=== PATIENT | male | born 1995 | race Caucasian/White ===

== ENCOUNTER 2016-05-03 22:07 | Emergency (ER) | payer OTHER ==
[2016-05-03] MEDS ORDERED: ONDANSETRON 4 MG ORAL DISINTEGRATING TAB (S0181) As Ordered ONE (23:37)
[2016-05-04] MEDS ORDERED: ONDANSETRON 4 MG ORAL DISINTEGRATING TAB (S0181) As Ordered ONE (00:12)
[2016-05-04] MEDS ORDERED: ACETAMINOPHEN 325 MG TAB As Ordered ONE (00:12)
--- NOTE | 2016-05-04 00:19 | EDDOCDS ---
Physician Documentation [facility] Name: Valentín Castillo Age: 21 yrs Sex: Male : 1995 Arrival Date: 05/03/2016 Time: 22:07 Bed Triage 3 Private MD: Disposition: 05/04/16 00:10 Discharged to Home/Self Care. Impression: Vomiting, Diarrhea, unspecified. - Condition is Stable. - Discharge Instructions: Food Choices to Help Relieve Diarrhea, Adult, Nausea and Vomiting. - Prescriptions for ZOFRAN ODT 4 mg - dissolve 1 tablet by ORAL route 4 times per day As needed do not chew, do not swallow whole; 10 tablet. - Medication Reconciliation, Work Release Form - 2 day, Local Pharmacy Hours form. - Follow up: Private Physician; When: Call to arrange an appointment; Reason: Recheck today's complaints, Continuance of care. - Problem is new. - Symptoms are unchanged. - Notes: reccommend no work until 05/05/16 or otherwise advised due to current illness Historical: - Allergies: CEPHALOSPORINS (Swelling); - Home Meds: 1. none - PMHx: none; - PSHx: none; - Social history: Smoking status: Patient states was never smoker of tobacco. No barriers to communication noted, The patient speaks fluent Korean. - Family history: Not pertinent. - : The pt / caregiver states he / she is not on anticoagulants. Home medication list is obtained from the patient. - Exposure Risk Screening:: None identified. Vital Signs: 05/03 22:18 BP 147 / 74; Pulse 113; Resp 20; Temp 96.5(O); Pulse Ox 97% on R/A; Weight 80.1 kg / kb5 176.59 lbs; Height 6 ft. 0 in. (182.88 cm) (R); Pain 7/10; 05/04 00:16 BP 138 / 78; Pulse 100; Resp 20; Temp 97.4(O); Pulse Ox 98% on R/A; Pain 0/10; jmb 05/03 22:18 Body Mass Index 23.95 (80.10 kg, 182.88 cm) kb5 MDM: 05/03 23:36 Ondansetron ODT Oral Disintegrating Tablet 4 mg PO once ordered. mo1 23:59 Financial registration complete. hs2 05/04 00:04 Ondansetron ODT Oral Disintegrating Tablet 4 mg PO once; please give to go home ordered.mo1 00:04 Acetaminophen Tablet 650 mg PO once ordered. mo1 Administered Medications: 05/03 23:38 Drug: Ondansetron ODT 4 mg [ondansetron 4 mg disintegrating tablet (1 tabs)] Route: PO; jmb 05/04 00:16 Drug: Ondansetron ODT 4 mg [ondansetron 4 mg disintegrating tablet (1 tabs)] Route: PO; jmb 00:16 Drug: Acetaminophen 650 mg [acetaminophen 325 mg tablet (2 tabs)] Route: PO; lester Signatures: Bettina Weiner RN RN rs3 Drew Caceres PA PA mo1 Darrick Allred RN RN jmb Dia Aquino, Reg Reg hs2 MTDD
--- NOTE | 2016-05-04 00:19 | EDDOCDS ---
Nurse's Notes [facility] Name: Valentín Castillo Age: 21 yrs Sex: Male : 1995 Arrival Date: 05/03/2016 Time: 22:07 Bed Triage 3 Private MD: Diagnosis: Vomiting;Diarrhea, unspecified Presentation: 05/03 22:29 Presenting complaint: states: abdominal pain, vomiting, diarrhea started 2 hours rs3 ago. Adult Sepsis Screening: The patient does not have new or worsening altered mentation. Patient's respiratory rate is less than 22. Systolic blood pressure is greater than 100. Patient has a qSOFA score of 0- Negative Sepsis Screen. Suicide/Homicide risk assessment- the patient denies having any suicidal and/or homicidal ideations and does not present with any other emotional, behavioral or mental health complaints. 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 Transition of care: patient was not received from another setting of care. 22:29 Acuity: GARY Level 3 rs3 22:29 Method Of Arrival: Walkin/Carried/Asstd rs3 Triage Assessment: 22:31 General: Appears in no apparent distress. Pain: Location: abdomen. Pt Declines HIV rs3 testing. Historical: - Allergies: CEPHALOSPORINS (Swelling); - Home Meds: 1. none - PMHx: none; - PSHx: none; - Social history: Smoking status: Patient states was never smoker of tobacco. No barriers to communication noted, The patient speaks fluent [place]ican. - Family history: Not pertinent. - : The pt / caregiver states he / she is not on anticoagulants. Home medication list is obtained from the patient. - Exposure Risk Screening:: None identified. Screenin/21 00:16 Screening information is obtained from the patient. Fall risk: No risks identified. jmb Assistance ADL's: requires no assistance with activities of daily living. Abuse/DV Screen: The patient / caregiver reports he/she is: not in a situation that causes fear, pain or injury. Nutritional screening: No deficits noted. Advance Directives: Currently, there is no health care proxy. There is no active DNR order. There is no living will. There is no Power of Financial Service Rep. home support is adequate. Assessment: 00:16 General: Patient instructed on discharge instructions. Patient asked if there were any jmb questions regarding discharge, patient stated no. Patient signed discharge instructions. Patient discharged in stable condition. . Vital Signs: 05/03 22:18 BP 147 / 74; Pulse 113; Resp 20; Temp 96.5(O); Pulse Ox 97% on R/A; Weight 80.1 kg; kb5 Height 6 ft. 0 in. (182.88 cm) (R); Pain 7/10; 05/04 00:16 BP 138 / 78; Pulse 100; Resp 20; Temp 97.4(O); Pulse Ox 98% on R/A; Pain 0/10; jmb 05/03 22:18 Body Mass Index 23.95 (80.10 kg, 182.88 cm) kb5 Vitals: 05/03 22:18 Log In Time: May 03, 2016 at 22:00. kb5 ED Course: 22:10 Patient visited by Severo Nolasco PCA. kb5 22:10 Patient moved to Waiting kb5 22:30 Triage Initiated rs3 22:32 Patient moved to Pre RCE rs3 23:30 Patient moved to Triage 3 jmb 23:31 Drew Caceres PA is PHCP. mo1 23:31 Gideon Blackwood DO is Attending Physician. mo1 23:36 Patient visited by Drew Caceres PA. mo1 05/04 00:16 The patient / caregiver is instructed regarding the plan of care and ED course. jmb 00:16 No IV's were initiated during this patient's visit. No procedures done that require jmb assistance. Administered Medications: 05/03 23:38 Drug: Ondansetron ODT 4 mg [ondansetron 4 mg disintegrating tablet (1 tabs)] Route: PO; jmb 05/04 00:16 Drug: Ondansetron ODT 4 mg [ondansetron 4 mg disintegrating tablet (1 tabs)] Route: PO; jmb 00:16 Drug: Acetaminophen 650 mg [acetaminophen 325 mg tablet (2 tabs)] Route: PO; b Order Results: There are currently no results for this order. Outcome: 00:10 Discharge ordered by Provider. mo1 00:16 Discharge Assessment: Patient awake, alert and oriented x 3. No cognitive and/or jmb functional deficits noted. Patient verbalized understanding of disposition instructions. Patient awake and alert. obeys commands, Oriented to person, place and time. Patient verbalized understanding of disposition instructions. Patient has no functional deficits. patient administered narcotics - no. The following High Risk Discharge criteria are identified: None. Discharged to home ambulatory, with family. Condition: stable Condition: improved. Discharge instructions given to patient, Instructed on discharge instructions, follow up and referral plans. medication usage, Demonstrated understanding of instructions, medications, Pt was receptive of discharge instructions/ teaching. Prescriptions given X 1. No special radiology studies were completed. Property sent home with patient. 00:19 Patient left the ED. harryb Signatures: Severo Nolasco, REHABILITATION TEAM LEAD REHABILITATION TEAM LEAD kb5 Bettina Weiner,RN RN rs3 Drew Caceres PA PA mo1 Darrick Allred,RN RN lester Corrections: (The following items were deleted from the chart) 05/03 22:40 22:18 BP 147 / 74; Pulse 113bpm; Resp 97bpm; Pulse Ox 96% RA; Temp 96.5F Oral; 80.1 kg; kb5 Height 6 ft. 0 in. Reported; BMI: 23.9; Pain 7/10; kb5 MTDD
--- NOTE | 2016-05-06 01:19 | EDDOCDS ---
Nurse's Notes [facility] Name: Valentín Castillo Age: 21 yrs Sex: Male : 1995 Arrival Date: 05/03/2016 Time: 22:07 Bed Triage 3 Private MD: Diagnosis: Vomiting;Diarrhea, unspecified Presentation: 05/03 22:29 Presenting complaint: states: abdominal pain, vomiting, diarrhea started 2 hours rs3 ago. Adult Sepsis Screening: The patient does not have new or worsening altered mentation. Patient's respiratory rate is less than 22. Systolic blood pressure is greater than 100. Patient has a qSOFA score of 0- Negative Sepsis Screen. Suicide/Homicide risk assessment- the patient denies having any suicidal and/or homicidal ideations and does not present with any other emotional, behavioral or mental health complaints. 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 Transition of care: patient was not received from another setting of care. 22:29 Acuity: GARY Level 3 rs3 22:29 Method Of Arrival: Walkin/Carried/Asstd rs3 Triage Assessment: 22:31 General: Appears in no apparent distress. Pain: Location: abdomen. Pt Declines HIV rs3 testing. Historical: - Allergies: CEPHALOSPORINS (Swelling); - Home Meds: 1. none - PMHx: none; - PSHx: none; - Social history: Smoking status: Patient states was never smoker of tobacco. No barriers to communication noted, The patient speaks fluent Moldovan. - Family history: Not pertinent. - : The pt / caregiver states he / she is not on anticoagulants. Home medication list is obtained from the patient. - Exposure Risk Screening:: None identified. Screenin/21 00:16 Screening information is obtained from the patient. Fall risk: No risks identified. jmb Assistance ADL's: requires no assistance with activities of daily living. Abuse/DV Screen: The patient / caregiver reports he/she is: not in a situation that causes fear, pain or injury. Nutritional screening: No deficits noted. Advance Directives: Currently, there is no health care proxy. There is no active DNR order. There is no living will. There is no Power of Director Of Mechanical Engineering. home support is adequate. Assessment: 00:16 General: Patient instructed on discharge instructions. Patient asked if there were any jmb questions regarding discharge, patient stated no. Patient signed discharge instructions. Patient discharged in stable condition. . Vital Signs: 05/03 22:18 BP 147 / 74; Pulse 113; Resp 20; Temp 96.5(O); Pulse Ox 97% on R/A; Weight 80.1 kg; kb5 Height 6 ft. 0 in. (182.88 cm) (R); Pain 7/10; 05/04 00:16 BP 138 / 78; Pulse 100; Resp 20; Temp 97.4(O); Pulse Ox 98% on R/A; Pain 0/10; jmb 05/03 22:18 Body Mass Index 23.95 (80.10 kg, 182.88 cm) kb5 Vitals: 05/03 22:18 Log In Time: May 03, 2016 at 22:00. kb5 ED Course: 22:10 Patient visited by Severo Nolasco PCA. kb5 22:10 Patient moved to Waiting kb5 22:30 Triage Initiated rs3 22:32 Patient moved to Pre RCE rs3 23:30 Patient moved to Triage 3 jmb 23:31 Drew Caceres PA is PHCP. mo1 23:31 Gideon Blackwood DO is Attending Physician. mo1 23:36 Patient visited by Drew Caceres PA. mo1 05/04 00:16 The patient / caregiver is instructed regarding the plan of care and ED course. jmb 00:16 No IV's were initiated during this patient's visit. No procedures done that require jmb assistance. 00:38 [facility] Payment Agreement was scanned into [employer] and attached to record. hs2 00:41 Patient name changed from Valentín\S\\S\Liebherr\S\ to Valentín\S\Peter\S\Liebherr. EDMS 10:38 T-Sheet-- Draft Copy was scanned into [employer] and attached to record. gb Administered Medications: 05/03 23:38 Drug: Ondansetron ODT 4 mg [ondansetron 4 mg disintegrating tablet (1 tabs)] Route: PO; jmb 05/04 00:16 Drug: Ondansetron ODT 4 mg [ondansetron 4 mg disintegrating tablet (1 tabs)] Route: PO; jmb 00:16 Drug: Acetaminophen 650 mg [acetaminophen 325 mg tablet (2 tabs)] Route: PO; [facility] Order Results: There are currently no results for this order. Outcome: 00:10 Discharge ordered by Provider. mo1 00:16 Discharge Assessment: Patient awake, alert and oriented x 3. No cognitive and/or jmb functional deficits noted. Patient verbalized understanding of disposition instructions. Patient awake and alert. obeys commands, Oriented to person, place and time. Patient verbalized understanding of disposition instructions. Patient has no functional deficits. patient administered narcotics - no. The following High Risk Discharge criteria are identified: None. Discharged to home ambulatory, with family. Condition: stable Condition: improved. Discharge instructions given to patient, Instructed on discharge instructions, follow up and referral plans. medication usage, Demonstrated understanding of instructions, medications, Pt was receptive of discharge instructions/ teaching. Prescriptions given X 1. No special radiology studies were completed. Property sent home with patient. 00:19 Patient left the ED. lester Signatures: Dispatcher [employer] EDMS Shanae Freitas, Reg Reg gb Severo Nolasco, CLAIMS ADJUSTER SUPERVISOR CLAIMS ADJUSTER SUPERVISOR kb5 Bettina Weiner RN RN rs3 Drew Caceres PA PA mo1 Darrick Allred RN RN jmb Stanton, Hillary, Reg Reg hs2 Corrections: (The following items were deleted from the chart) 02 22:40 22:18 BP 147 / 74; Pulse 113bpm; Resp 97bpm; Pulse Ox 96% RA; Temp 96.5F Oral; 80.1 kg; kb5 Height 6 ft. 0 in. Reported; BMI: 23.9; Pain 7/10; kb5 Chart Complete MTDD
--- NOTE | 2016-05-06 01:19 | EDDOCDS ---
Physician Documentation [facility] Name: Valentín Castillo Age: 21 yrs Sex: Male : 1995 Arrival Date: 05/03/2016 Time: 22:07 Bed Triage 3 Private MD: Disposition: 05/04/16 00:10 Discharged to Home/Self Care. Impression: Vomiting, Diarrhea, unspecified. - Condition is Stable. - Discharge Instructions: Food Choices to Help Relieve Diarrhea, Adult, Nausea and Vomiting. - Prescriptions for ZOFRAN ODT 4 mg - dissolve 1 tablet by ORAL route 4 times per day As needed do not chew, do not swallow whole; 10 tablet. - Medication Reconciliation, Work Release Form - 2 day, Local Pharmacy Hours form. - Follow up: Private Physician; When: Call to arrange an appointment; Reason: Recheck today's complaints, Continuance of care. - Problem is new. - Symptoms are unchanged. - Notes: reccommend no work until 05/05/16 or otherwise advised due to current illness Historical: - Allergies: CEPHALOSPORINS (Swelling); - Home Meds: 1. none - PMHx: none; - PSHx: none; - Social history: Smoking status: Patient states was never smoker of tobacco. No barriers to communication noted, The patient speaks fluent Swedish. - Family history: Not pertinent. - : The pt / caregiver states he / she is not on anticoagulants. Home medication list is obtained from the patient. - Exposure Risk Screening:: None identified. Vital Signs: 05/03 22:18 BP 147 / 74; Pulse 113; Resp 20; Temp 96.5(O); Pulse Ox 97% on R/A; Weight 80.1 kg / kb5 176.59 lbs; Height 6 ft. 0 in. (182.88 cm) (R); Pain 7/10; 05/04 00:16 BP 138 / 78; Pulse 100; Resp 20; Temp 97.4(O); Pulse Ox 98% on R/A; Pain 0/10; jmb 05/03 22:18 Body Mass Index 23.95 (80.10 kg, 182.88 cm) kb5 MDM: 05/03 23:36 Ondansetron ODT Oral Disintegrating Tablet 4 mg PO once ordered. mo1 23:59 Financial registration complete. hs2 05/04 00:04 Ondansetron ODT Oral Disintegrating Tablet 4 mg PO once; please give to go home ordered.mo1 00:04 Acetaminophen Tablet 650 mg PO once ordered. mo1 00:38 [facility] INCLUDES THE [facility] Payment Agreement was scanned into [employer] and attached to record. hs2 : T-Sheet-- Draft Copy was scanned into [employer] and attached to record. gb Administered Medications: 05/03 23:38 Drug: Ondansetron ODT 4 mg [ondansetron 4 mg disintegrating tablet (1 tabs)] Route: PO; jmb 05/04 00:16 Drug: Ondansetron ODT 4 mg [ondansetron 4 mg disintegrating tablet (1 tabs)] Route: PO; lester 00:16 Drug: Acetaminophen 650 mg [acetaminophen 325 mg tablet (2 tabs)] Route: PO; lester Signatures: Shanae Freitas, Reg Reg gb Bettina Weiner RN RN rs3 Drew Caceres PA PA mo1 Darrick Allred RN RN jmb Dia Aquino, Reg Reg hs2 The chart was reviewed and I authenticate all verbal orders and agree with the evaluation and treatment provided.Attachments: 00:38 COUNT INCLUDES THE [facility] Payment Agreement hs2 :38 T-Sheet-- Draft Copy gb Chart Complete MTDD
--- NOTE | 2016-05-06 01:19 | EDDOCDS ---
Physician Documentation [facility] Name: Valentín Castillo Age: 21 yrs Sex: Male : 1995 Arrival Date: 05/03/2016 Time: 22:07 Bed Triage 3 Private MD: Disposition: 05/04/16 00:10 Discharged to Home/Self Care. Impression: Vomiting, Diarrhea, unspecified. - Condition is Stable. - Discharge Instructions: Food Choices to Help Relieve Diarrhea, Adult, Nausea and Vomiting. - Prescriptions for ZOFRAN ODT 4 mg - dissolve 1 tablet by ORAL route 4 times per day As needed do not chew, do not swallow whole; 10 tablet. - Medication Reconciliation, Work Release Form - 2 day, Local Pharmacy Hours form. - Follow up: Private Physician; When: Call to arrange an appointment; Reason: Recheck today's complaints, Continuance of care. - Problem is new. - Symptoms are unchanged. - Notes: reccommend no work until 05/05/16 or otherwise advised due to current illness Historical: - Allergies: CEPHALOSPORINS (Swelling); - Home Meds: 1. none - PMHx: none; - PSHx: none; - Social history: Smoking status: Patient states was never smoker of tobacco. No barriers to communication noted, The patient speaks fluent Polish. - Family history: Not pertinent. - : The pt / caregiver states he / she is not on anticoagulants. Home medication list is obtained from the patient. - Exposure Risk Screening:: None identified. Vital Signs: 05/03 22:18 BP 147 / 74; Pulse 113; Resp 20; Temp 96.5(O); Pulse Ox 97% on R/A; Weight 80.1 kg / kb5 176.59 lbs; Height 6 ft. 0 in. (182.88 cm) (R); Pain 7/10; 05/04 00:16 BP 138 / 78; Pulse 100; Resp 20; Temp 97.4(O); Pulse Ox 98% on R/A; Pain 0/10; jmb 05/03 22:18 Body Mass Index 23.95 (80.10 kg, 182.88 cm) kb5 MDM: 05/03 23:36 Ondansetron ODT Oral Disintegrating Tablet 4 mg PO once ordered. mo1 23:59 Financial registration complete. hs2 05/04 00:04 Ondansetron ODT Oral Disintegrating Tablet 4 mg PO once; please give to go home ordered.mo1 00:04 Acetaminophen Tablet 650 mg PO once ordered. mo1 00:38 [facility] Payment Agreement was scanned into [employer] and attached to record. hs2 : T-Sheet-- Draft Copy was scanned into [employer] and attached to record. gb Administered Medications: 05/03 23:38 Drug: Ondansetron ODT 4 mg [ondansetron 4 mg disintegrating tablet (1 tabs)] Route: PO; jmb 05/04 00:16 Drug: Ondansetron ODT 4 mg [ondansetron 4 mg disintegrating tablet (1 tabs)] Route: PO; lester 00:16 Drug: Acetaminophen 650 mg [acetaminophen 325 mg tablet (2 tabs)] Route: PO; lseter Signatures: Shanae Freitas, Reg Reg gb Bettina Weiner RN RN rs3 Drew Caceres PA PA mo1 Darrick Allred RN RN jmb Dia Aquino, Reg Reg hs2 The chart was reviewed and I authenticate all verbal orders and agree with the evaluation and treatment provided.Attachments: 00:38 [facility] Payment Agreement hs2 :38 T-Sheet-- Draft Copy gb Chart Complete MTDD
== END 2016-05-04 00:19 | disposition home or self-care (01) ==
LOC: M ED 22:07
DX: R11.2 Nausea with vomiting, unspecified (principal); R19.7 Diarrhea, unspecified; R10.84 Generalized abdominal pain; Z88.0 Allergy status to penicillin

== ENCOUNTER → 2017-04-08 | Outpatient (CLI) | payer OTHER ==
[~2017-04-08] MED LIST: CONRAY-43 43% 50ML VIAL (Q9960) As Ordered; PROHANCE 279.3MG/ML 5ML VIAL (A9576) As Ordered
== END ==
LOC: M RADPRO 07:33
DX: M75.82 Other shoulder lesions, left shoulder (principal); M25.412 Effusion, left shoulder; M25.512 Pain in left shoulder
CPT/HCPCS: 23350